=== PATIENT | male | born 1970 | race African-American/Black ===

== ENCOUNTER 2022-03-26 11:11 | Emergency (ER) | payer OTHER ==
[2022-03-26] MEDS ORDERED: DIPHTH,PERTUSS(ACELL),TET 0.5 ML DISP.SYRIN IM ONE ×2 (11:41→12:05)
[2022-03-26 11:49] VITALS: BP 106/70; PULSE 100; RESP 18; TEMP 98; BMI 20.3
== END 2022-03-26 12:25 | disposition home or self-care (01) ==
LOC: FER 11:11
PROC: 3E0234Z Introduction of Serum, Toxoid and Vaccine into Muscle, Percutaneous Approach (ICD-10-PCS; principal; 2022-03-26)
DX: S20.419A Abrasion of unspecified back wall of thorax, initial encounter (principal)
CPT/HCPCS: 90471; 90715; 99283-25

== ENCOUNTER 2022-07-27 10:22 | Inpatient (IN) | payer OTHER ==
[2022-07-27] MEDS ORDERED: ACETAMINOPHEN 1000 MG/100 ML BAG IVPB ONE (10:44)
[2022-07-27] MEDS ORDERED: SODIUM CHLORIDE 0.9% 500 ML INFUS.BAG IV ONE (10:44)
[2022-07-27] MEDS ORDERED: ACETAMINOPHEN INJECTION 100 ML IVPB ONE (11:31)
[2022-07-27 12:31] LABS: BASO % 0.4 % (0-2.0); HEMATOCRIT 41.9 % (35.4-49); HEMOGLOBIN 13.9 GM/dL (11.7-16.9); LYMPH % 7.2 % (8-40); MCH 28.4 pg (25.7-33.7); MCHC 33.1 g/dl (32.0-35.9); MEAN CELL VOLUME 85.7 fl (80-96); MEAN PLT VOLUME 8.4 fl (7.5-11.1); MONO % 11.1 % (3.8-10.2); NEUT % 81.3 % (42.8-82.8); PLATELET COUNT 151 10^3/uL (134-434); RBC 4.89 M/mm3 (4.00-5.60); RDW 13.6 % (11.9-15.9); WHITE BLOOD COUNT 9.5 K/mm3 (4.0-10.0)
[2022-07-27 12:33] LABS: VENOUS BASE EXCESS 0.7 mmol/L (-2-2); VENOUS O2 SATURATION 88.6 % (70-80); VENOUS PCO2 45.9 mmHg (38-52); VENOUS PH 7.378 (7.310-7.410)
[2022-07-27 12:41] LABS: INR 1.71 (0.83-1.09); PROTHROMBIN TIME (PATIENT) 19.8 SEC (9.7-13.0)
[2022-07-27 12:43] LABS: ACTIVATED PTT 34.2 SECONDS (25.2-36.5)
[2022-07-27 13:00] LABS: ALBUMIN 3.4 g/dl (3.4-5.0); BLOOD UREA NITROGEN 21.6 mg/dL (7-18); CALCIUM 8.5 mg/dL (8.5-10.1)
[2022-07-27 13:03] LABS: CREATININE 1.3 mg/dL (0.55-1.3)
[2022-07-27 13:05] LABS: BILIRUBIN,TOTAL 0.8 mg/dL (0.2-1); TOT PROT 6.4 g/dl (6.4-8.2)
[2022-07-27] MEDS ORDERED: ACETAMINOPHEN 325 MG TABLET (FP) PO PRN (14:05)
[2022-07-27] MEDS ORDERED: HEPARIN NA (PORCINE) 5,000 UNITS/ML 1ML VIAL ONE (14:41)
[2022-07-27] MEDS: HEPARIN NA (PORCINE) 5,000 UNITS/ML 1ML VIAL SQ SCH ×2 (14:50→22:55)
[2022-07-27] MEDS ORDERED: REMDESIVIR 200 MG in SODIUM CHLORIDE 250 ML IVPB ONE (15:00)
[2022-07-27] MEDS ORDERED: DEXAMETHASONE SOD PHOSPHATE 10 MG/1 ML VIAL IVPUSH ONE (15:04)
[2022-07-27] MEDS ORDERED: PATIENT'S OWN MEDICATION (NON-FORMULARY) (Clonazepam [Clonazepam] 1 MG Tablet) PO SCH (22:00)
[2022-07-27] MEDS: OXcarbazepine 300 MG TABLET (UD) PO SCH (22:54)
[2022-07-27] MEDS: clonazePAM 2 MG TABLET PO SCH (22:54)
[2022-07-27] MEDS: MAGNESIUM OXIDE 400 MG TABLET (FP) PO SCH (22:54)
[2022-07-27] MEDS: traZODone HCL 50 MG TABLET (FP) PO SCH (22:54)
[2022-07-28 02:14] VITALS: BMI 24.0
[2022-07-28] MEDS: HEPARIN NA (PORCINE) 5,000 UNITS/ML 1ML VIAL SQ SCH ×3 (06:41→21:32)
[2022-07-28] MEDS ORDERED: ACETAMINOPHEN 1000 MG/100 ML BAG IVPB ONE (09:32)
[2022-07-28] MEDS ORDERED: SODIUM CHLORIDE 1,000 ML IV SCH (09:45)
[2022-07-28] MEDS ORDERED: POLYETHYLENE GLYCOL 3350 255 GM BTL PO SCH (10:00)
[2022-07-28 10:06] LABS: BASO % 0.3 % (0-2.0); HEMATOCRIT 42.3 % (35.4-49); HEMOGLOBIN 14.2 GM/dL (11.7-16.9); LYMPH % 8.7 % (8-40); MCH 28.6 pg (25.7-33.7); MCHC 33.6 g/dl (32.0-35.9); MEAN CELL VOLUME 85.3 fl (80-96); MEAN PLT VOLUME 7.9 fl (7.5-11.1); MONO % 8.7 % (3.8-10.2); NEUT % 82.3 % (42.8-82.8); PLATELET COUNT 147 10^3/uL (134-434); RBC 4.96 M/mm3 (4.00-5.60); RDW 13.6 % (11.9-15.9); WHITE BLOOD COUNT 10.9 K/mm3 (4.0-10.0)
[2022-07-28 10:13] LABS: CALCIUM 8.5 mg/dL (8.5-10.1)
[2022-07-28 10:14] LABS: BLOOD UREA NITROGEN 12.3 mg/dL (7-18)
[2022-07-28 10:17] LABS: CREATININE 0.9 mg/dL (0.55-1.3)
[2022-07-28] MEDS ORDERED: CEFTRIAXONE 1,000 MG in DEXTROSE 5%-WATER - 50 ML IVPB ONE (10:36)
[2022-07-28] MEDS: OXcarbazepine 300 MG TABLET (UD) PO SCH ×2 (10:51→21:33)
[2022-07-28] MEDS: SENNOSIDES 8.6MG TABLET (FP) PO SCH (10:51)
[2022-07-28] MEDS: LACTULOSE 20 GM/30 ML UDC (FOR ORAL USE ONLY) PO SCH (10:52)
[2022-07-28] MEDS: BACLOFEN 10 MG TABLET (FP) PO SCH (10:52)
[2022-07-28] MEDS: PANTOPRAZOLE 40 MG TABLET PO SCH (10:52)
[2022-07-28] MEDS: POLYETHYLENE GLYCOL (HEALTHYLAX) 3350 17 GM PACKET PO SCH (12:01)
[2022-07-28] MEDS: PIPERACILLIN/TAZOB 3.375 GM 3.375 GM in DEXTROSE 5%-WATER - 50 ML IVPB SCH ×2 (12:01→18:27)
[2022-07-28] MEDS: ACETAMINOPHEN 325 MG TABLET (FP) PO PRN ×2 (12:08→17:25)
[2022-07-28] MEDS: REMDESIVIR 100 MG in SODIUM CHLORIDE 250 ML IVPB SCH (14:38)
[2022-07-28] MEDS: [UNRECOGNIZED DRUG - OTHER] PO SCH (14:43)
[2022-07-28] MEDS: FLUTICASONE PROP 0.05% 16 GM NASAL SPRAY NS SCH (15:03)
[2022-07-28] MEDS ORDERED: DOCUSATE SODIUM 100 MG CAPSULE (FP) PO PRN (16:43)
[2022-07-28] MEDS ORDERED: PATIENT'S OWN MEDICATION (NON-FORMULARY) (Ferrous Sulfate [Ferrous Sulfate] 325 MG Tablet) PO SCH (16:45)
[2022-07-28] MEDS ORDERED: [UNRECOGNIZED DRUG - OTHER] PO SCH (17:30)
[2022-07-28] MEDS ORDERED: FLUPHENAZINE HCL 10 MG PO SCH (20:00)
[2022-07-28] MEDS: traZODone HCL 50 MG TABLET (FP) PO SCH (21:32)
[2022-07-28] MEDS: MAGNESIUM OXIDE 400 MG TABLET (FP) PO SCH (21:32)
[2022-07-28] MEDS: clonazePAM 2 MG TABLET PO SCH (21:32)
[2022-07-28] MEDS: MINERAL OIL/PET HY-PHL TOPICAL OINTMENT 454 GM JAR TP SCH (21:34)
[2022-07-28] MEDS ORDERED: [UNRECOGNIZED DRUG - OTHER] PO SCH (22:00)
[2022-07-29] MEDS: PIPERACILLIN/TAZOB 3.375 GM 3.375 GM in DEXTROSE 5%-WATER - 50 ML IVPB SCH ×3 (01:26→17:18)
[2022-07-29] MEDS: HEPARIN NA (PORCINE) 5,000 UNITS/ML 1ML VIAL SQ SCH ×2 (05:14→23:00)
[2022-07-29 09:19] LABS: BASO % 0.4 % (0-2.0); EOS % 0.2 % (0-4.5); HEMATOCRIT 43.7 % (35.4-49); HEMOGLOBIN 14.1 GM/dL (11.7-16.9); LYMPH % 11.7 % (8-40); MCH 27.8 pg (25.7-33.7); MCHC 32.2 g/dl (32.0-35.9); MEAN CELL VOLUME 86.5 fl (80-96); MEAN PLT VOLUME 8.1 fl (7.5-11.1); MONO % 9.9 % (3.8-10.2); NEUT % 77.8 % (42.8-82.8); PLATELET COUNT 171 10^3/uL (134-434); RBC 5.05 M/mm3 (4.00-5.60); RDW 13.5 % (11.9-15.9); WHITE BLOOD COUNT 6.7 K/mm3 (4.0-10.0)
[2022-07-29 09:54] LABS: ALBUMIN 3.4 g/dl (3.4-5.0); CALCIUM 8.7 mg/dL (8.5-10.1)
[2022-07-29 09:55] LABS: BLOOD UREA NITROGEN 10.7 mg/dL (7-18); MAGNESIUM 2.3 mg/dL (1.8-2.4)
[2022-07-29 09:57] LABS: CREATININE 0.9 mg/dL (0.55-1.3)
[2022-07-29 09:58] LABS: PHOSPHOROUS 2.3 mg/dL (2.5-4.9)
[2022-07-29 09:59] LABS: BILIRUBIN,TOTAL 1.1 mg/dL (0.2-1); TOT PROT 6.6 g/dl (6.4-8.2)
[2022-07-29] MEDS: LACTULOSE 20 GM/30 ML UDC (FOR ORAL USE ONLY) PO SCH (10:12)
[2022-07-29] MEDS: POLYETHYLENE GLYCOL (HEALTHYLAX) 3350 17 GM PACKET PO SCH (10:12)
[2022-07-29] MEDS: SENNOSIDES 8.6MG TABLET (FP) PO SCH (10:12)
[2022-07-29] MEDS: BACLOFEN 10 MG TABLET (FP) PO SCH (10:37)
[2022-07-29] MEDS: CHOLECALCIFEROL (VIT D3) 1,000 UNIT (25 MCG) TABLET PO SCH (10:37)
[2022-07-29] MEDS: PANTOPRAZOLE 40 MG TABLET PO SCH (10:37)
[2022-07-29] MEDS: ACETAMINOPHEN 325 MG TABLET (FP) PO PRN (10:37)
[2022-07-29] MEDS: MINERAL OIL/PET HY-PHL TOPICAL OINTMENT 454 GM JAR TP SCH ×2 (10:38→23:00)
[2022-07-29] MEDS: OXcarbazepine 300 MG TABLET (UD) PO SCH ×2 (10:38→22:59)
[2022-07-29] MEDS: FLUTICASONE PROP 0.05% 16 GM NASAL SPRAY NS SCH (10:39)
[2022-07-29] MEDS: AMMONIUM LACTATE 12% LOTION 225 GM BOTTLE TP SCH (10:39)
[2022-07-29] MEDS ORDERED: NAPH,MB-DB/K PH,MBDB POWDER PACKET PO ONE (11:03)
[2022-07-29] MEDS: REMDESIVIR 100 MG in SODIUM CHLORIDE 250 ML IVPB SCH (15:19)
[2022-07-29] MEDS ORDERED: clonazePAM 2 MG TABLET PO ONE (16:00)
[2022-07-29] MEDS: CARIPRAZINE HCL 6 MG PO SCH (17:56)
[2022-07-29] MEDS: traZODone HCL 50 MG TABLET (FP) PO SCH (22:59)
[2022-07-29] MEDS: MAGNESIUM OXIDE 400 MG TABLET (FP) PO SCH (23:00)
[2022-07-30] MEDS: PIPERACILLIN/TAZOB 3.375 GM 3.375 GM in DEXTROSE 5%-WATER - 50 ML IVPB SCH ×3 (02:08→17:02)
[2022-07-30] MEDS ORDERED: clonazePAM 2 MG TABLET PO ONE (07:00)
[2022-07-30 10:16] LABS: BASO % 0.4 % (0-2.0); EOS % 0.7 % (0-4.5); HEMATOCRIT 43.6 % (35.4-49); HEMOGLOBIN 14.2 GM/dL (11.7-16.9); LYMPH % 25.1 % (8-40); MCH 27.9 pg (25.7-33.7); MCHC 32.5 g/dl (32.0-35.9); MEAN CELL VOLUME 85.7 fl (80-96); MEAN PLT VOLUME 7.9 fl (7.5-11.1); NEUT % 61.8 % (42.8-82.8); PLATELET COUNT 194 10^3/uL (134-434); RBC 5.08 M/mm3 (4.00-5.60); RDW 13.2 % (11.9-15.9); WHITE BLOOD COUNT 4.7 K/mm3 (4.0-10.0)
[2022-07-30] MEDS: MINERAL OIL/PET HY-PHL TOPICAL OINTMENT 454 GM JAR TP SCH ×2 (10:22→21:29)
[2022-07-30 10:26] LABS: CALCIUM 8.4 mg/dL (8.5-10.1)
[2022-07-30 10:27] LABS: ALBUMIN 3.2 g/dl (3.4-5.0); BLOOD UREA NITROGEN 11.1 mg/dL (7-18); MAGNESIUM 2.5 mg/dL (1.8-2.4)
[2022-07-30 10:30] LABS: CREATININE 0.9 mg/dL (0.55-1.3); PHOSPHOROUS 2.8 mg/dL (2.5-4.9)
[2022-07-30 10:31] LABS: BILIRUBIN,TOTAL 1.4 mg/dL (0.2-1); TOT PROT 6.6 g/dl (6.4-8.2)
[2022-07-30] MEDS: OXcarbazepine 300 MG TABLET (UD) PO SCH ×2 (10:31→21:33)
[2022-07-30] MEDS: HEPARIN NA (PORCINE) 5,000 UNITS/ML 1ML VIAL SQ SCH ×2 (10:32→21:29)
[2022-07-30] MEDS: POLYETHYLENE GLYCOL (HEALTHYLAX) 3350 17 GM PACKET PO SCH (10:32)
[2022-07-30] MEDS: SENNOSIDES 8.6MG TABLET (FP) PO SCH (10:35)
[2022-07-30] MEDS: PANTOPRAZOLE 40 MG TABLET PO SCH (10:36)
[2022-07-30] MEDS: LACTULOSE 20 GM/30 ML UDC (FOR ORAL USE ONLY) PO SCH (10:36)
[2022-07-30] MEDS: CHOLECALCIFEROL (VIT D3) 1,000 UNIT (25 MCG) TABLET PO SCH (10:36)
[2022-07-30] MEDS: FERROUS SO4 325 MG TABLET (FP) PO SCH (10:36)
[2022-07-30] MEDS: BACLOFEN 10 MG TABLET (FP) PO SCH (10:36)
[2022-07-30] MEDS: AMMONIUM LACTATE 12% LOTION 225 GM BOTTLE TP SCH (10:38)
[2022-07-30] MEDS: CARIPRAZINE HCL 6 MG PO SCH (10:41)
[2022-07-30] MEDS: FLUTICASONE PROP 0.05% 16 GM NASAL SPRAY NS SCH (10:47)
[2022-07-30] MEDS: REMDESIVIR 100 MG in SODIUM CHLORIDE 250 ML IVPB SCH (16:17)
[2022-07-30] MEDS: clonazePAM 0.5 MG TABLET PO SCH ×2 (16:21→21:28)
[2022-07-30] MEDS: traZODone HCL 50 MG TABLET (FP) PO SCH (21:29)
[2022-07-30] MEDS: MAGNESIUM OXIDE 400 MG TABLET (FP) PO SCH (21:29)
[2022-07-31] MEDS: clonazePAM 2 MG TABLET PO SCH ×2 (06:12→11:04)
[2022-07-31] MEDS: CARIPRAZINE HCL 6 MG PO SCH (11:03)
[2022-07-31] MEDS: LACTULOSE 20 GM/30 ML UDC (FOR ORAL USE ONLY) PO SCH (11:03)
[2022-07-31] MEDS: DEXAMETHASONE 4 MG TABLET (FP) PO SCH (11:03)
[2022-07-31] MEDS: MINERAL OIL/PET HY-PHL TOPICAL OINTMENT 454 GM JAR TP SCH ×2 (11:03→22:47)
[2022-07-31] MEDS: FLUTICASONE PROP 0.05% 16 GM NASAL SPRAY NS SCH (11:04)
[2022-07-31] MEDS: POLYETHYLENE GLYCOL (HEALTHYLAX) 3350 17 GM PACKET PO SCH (11:04)
[2022-07-31] MEDS: HEPARIN NA (PORCINE) 5,000 UNITS/ML 1ML VIAL SQ SCH ×2 (11:04→22:46)
[2022-07-31] MEDS: AMMONIUM LACTATE 12% LOTION 225 GM BOTTLE TP SCH (11:05)
[2022-07-31] MEDS: PANTOPRAZOLE 40 MG TABLET PO SCH (11:05)
[2022-07-31] MEDS: SENNOSIDES 8.6MG TABLET (FP) PO SCH (11:05)
[2022-07-31] MEDS: BACLOFEN 10 MG TABLET (FP) PO SCH (11:05)
[2022-07-31] MEDS: CEFTRIAXONE 1 GM in DEXTROSE 5%-WATER - 50 ML IVPB SCH (11:05)
[2022-07-31] MEDS: CHOLECALCIFEROL (VIT D3) 1,000 UNIT (25 MCG) TABLET PO SCH (11:06)
[2022-07-31] MEDS: OXcarbazepine 300 MG TABLET (UD) PO SCH ×2 (11:06→22:47)
[2022-07-31 11:18] LABS: BASO % 0.6 % (0-2.0); EOS % 0.3 % (0-4.5); HEMATOCRIT 43.7 % (35.4-49); HEMOGLOBIN 14.1 GM/dL (11.7-16.9); LYMPH % 21.3 % (8-40); MCH 27.8 pg (25.7-33.7); MCHC 32.4 g/dl (32.0-35.9); MEAN CELL VOLUME 85.8 fl (80-96); MEAN PLT VOLUME 7.5 fl (7.5-11.1); MONO % 10.8 % (3.8-10.2); PLATELET COUNT 221 10^3/uL (134-434); RBC 5.09 M/mm3 (4.00-5.60); RDW 13.1 % (11.9-15.9); WHITE BLOOD COUNT 4.4 K/mm3 (4.0-10.0)
[2022-07-31 11:36] LABS: ALBUMIN 3.3 g/dl (3.4-5.0); CALCIUM 8.9 mg/dL (8.5-10.1)
[2022-07-31 11:37] LABS: BLOOD UREA NITROGEN 8.7 mg/dL (7-18); MAGNESIUM 2.4 mg/dL (1.8-2.4)
[2022-07-31 11:39] LABS: CREATININE 0.8 mg/dL (0.55-1.3); PHOSPHOROUS 2.8 mg/dL (2.5-4.9)
[2022-07-31 11:41] LABS: TOT PROT 6.6 g/dl (6.4-8.2)
[2022-07-31] MEDS: REMDESIVIR 100 MG in SODIUM CHLORIDE 250 ML IVPB SCH (14:38)
[2022-07-31] MEDS: clonazePAM 0.5 MG TABLET PO SCH ×2 (17:09→22:45)
[2022-07-31] MEDS: MAGNESIUM OXIDE 400 MG TABLET (FP) PO SCH (22:45)
[2022-07-31] MEDS: traZODone HCL 50 MG TABLET (FP) PO SCH (22:45)
[2022-08-01] MEDS: LACTULOSE 20 GM/30 ML UDC (FOR ORAL USE ONLY) PO SCH (09:54)
[2022-08-01] MEDS: CHOLECALCIFEROL (VIT D3) 1,000 UNIT (25 MCG) TABLET PO SCH (09:55)
[2022-08-01] MEDS: DEXAMETHASONE 4 MG TABLET (FP) PO SCH (09:55)
[2022-08-01] MEDS: FERROUS SO4 325 MG TABLET (FP) PO SCH (09:55)
[2022-08-01] MEDS: BACLOFEN 10 MG TABLET (FP) PO SCH (09:55)
[2022-08-01] MEDS: clonazePAM 2 MG TABLET PO SCH (09:55)
[2022-08-01] MEDS: SENNOSIDES 8.6MG TABLET (FP) PO SCH (09:55)
[2022-08-01] MEDS: HEPARIN NA (PORCINE) 5,000 UNITS/ML 1ML VIAL SQ SCH (09:56)
[2022-08-01] MEDS: MINERAL OIL/PET HY-PHL TOPICAL OINTMENT 454 GM JAR TP SCH (09:56)
[2022-08-01] MEDS: POLYETHYLENE GLYCOL (HEALTHYLAX) 3350 17 GM PACKET PO SCH (09:56)
[2022-08-01] MEDS: AMMONIUM LACTATE 12% LOTION 225 GM BOTTLE TP SCH (09:57)
[2022-08-01] MEDS: FLUTICASONE PROP 0.05% 16 GM NASAL SPRAY NS SCH (09:57)
[2022-08-01] MEDS: OXcarbazepine 300 MG TABLET (UD) PO SCH (09:59)
[2022-08-01] MEDS: CARIPRAZINE HCL 6 MG PO SCH (10:01)
[2022-08-01] MEDS: PANTOPRAZOLE 40 MG TABLET PO SCH (10:02)
[2022-08-01] MEDS: CEFTRIAXONE 1 GM in DEXTROSE 5%-WATER - 50 ML IVPB SCH (10:03)
[2022-08-01 11:01] VITALS: RESP 18
[2022-08-01 11:50] LABS: BASO % 0.5 % (0-2.0); EOS % 0.5 % (0-4.5); HEMATOCRIT 44.4 % (35.4-49); HEMOGLOBIN 14.4 GM/dL (11.7-16.9); LYMPH % 28.5 % (8-40); MCHC 32.5 g/dl (32.0-35.9); MEAN PLT VOLUME 7.9 fl (7.5-11.1); MONO % 10.8 % (3.8-10.2); NEUT % 59.7 % (42.8-82.8); PLATELET COUNT 210 10^3/uL (134-434); RBC 5.16 M/mm3 (4.00-5.60); RDW 13.1 % (11.9-15.9); WHITE BLOOD COUNT 6.5 K/mm3 (4.0-10.0)
[2022-08-01 12:29] LABS: ALBUMIN 3.2 g/dl (3.4-5.0); CALCIUM 8.9 mg/dL (8.5-10.1)
[2022-08-01 12:30] LABS: BLOOD UREA NITROGEN 8.5 mg/dL (7-18); MAGNESIUM 2.3 mg/dL (1.8-2.4)
[2022-08-01 12:32] LABS: CREATININE 0.8 mg/dL (0.55-1.3)
[2022-08-01 12:33] LABS: BILIRUBIN,TOTAL 0.7 mg/dL (0.2-1); TOT PROT 6.5 g/dl (6.4-8.2)
[2022-08-01 15:12] VITALS: BP 118/76; PULSE 93; TEMP 98.7
== END 2022-08-01 16:39 | disposition home or self-care (01) | DRG 177 ==
LOC: JER 10:22 → JERBED 14:30 → J8W 18:23
PROVIDERS: ADMIT Internal Medicine; ATTEND Internal Medicine
PROC: XW033E5 Introduction of Remdesivir Anti-infective into Peripheral Vein, Percutaneous Approach, New Technology Group 5 (ICD-10-PCS; principal; 2022-07-27)
DX: U07.1 COVID-19 (principal); J12.82 Pneumonia due to coronavirus disease 2019; K56.7 Ileus, unspecified; R78.81 Bacteremia; F72 Severe intellectual disabilities; N17.9 Acute kidney failure, unspecified; F20.9 Schizophrenia, unspecified; R09.02 Hypoxemia
CPT/HCPCS: 0241U-QW; 36415; 71045-TC-FY; 74018-TC-FY; 80048; 80053; 82803; 82962; 83605; 83735; 84100; 84484; 85025; 85610; 85730; 86140; 87040; 87186; 87899; 93005; 93010; 97116-GP; 97161-GP; 99285-25; C9399; C9803-CS; J0475; J1100; J1644; U0003; U0005

== ENCOUNTER 2022-12-01 14:36 | Inpatient (IN) | payer OTHER ==
[2022-12-01] MEDS ORDERED: SODIUM CHLORIDE 0.9% 1000 ML INFUS.BAG IV ONE (15:31)
[2022-12-01] MEDS ORDERED: ACETAMINOPHEN 1000 MG/100 ML BAG IVPB ONE (15:31)
[2022-12-01] MEDS ORDERED: ALBUTEROL SO4 2.5/IPRATROPIUM 0.5 INH SOL 3 ML VIAL.NEB. NEB ONE ×2 (15:31→15:35)
[2022-12-01] MEDS ORDERED: ACETAMINOPHEN INJECTION 100 ML IVPB ONE (15:35)
[2022-12-01] MEDS ORDERED: guaiFENesin/CODEINE 10 ML UNIT-DOSE CUPS PO ONE (17:24)
[2022-12-01 17:25] LABS: ALBUMIN 3.9 g/dl (3.4-5.0); BILIRUBIN,TOTAL 0.6 mg/dl (0.2-1); CALCIUM 8.4 mg/dl (8.5-10); TOT PROT 6.6 g/dl (6.4-8.2)
[2022-12-01] MEDS ORDERED: guaiFENesin/CODEINE 10 ML UNIT-DOSE CUPS ONE (17:43)
[2022-12-01 17:51] LABS: HEMATOCRIT 45.5 % (35.4-49); HEMOGLOBIN 15.3 GM/dL (11.7-16.9); MCH 28.4 pg (25.7-33.7); MCHC 33.6 g/dl (32.0-35.9); MEAN CELL VOLUME 84.6 fl (80-96); MEAN PLT VOLUME 8.8 fl (7.5-11.1); PLATELET COUNT 201 10^3/uL (134-434); RBC 5.38 M/mm3 (4.00-5.60); WHITE BLOOD COUNT 8.2 K/mm3 (4.0-10.0)
[2022-12-01] MEDS ORDERED: AZITHROMYCIN 250 MG TABLET PO ONE (18:51)
[2022-12-01] MEDS ORDERED: AZITHROMYCIN 500 MG TABLET ONE (18:56)
[2022-12-01] MEDS ORDERED: PIPERACILLIN/TAZOBACTAM 3.375 GM VIAL IVPB ONE (19:32)
[2022-12-01] MEDS: PIPERACILLIN/TAZOB 3.375 GM 3.375 GM in DEXTROSE 5%-WATER - 50 ML IVPB ONE (19:45)
[2022-12-02] MEDS: PIPERACILLIN/TAZOB 3.375 GM 3.375 GM in DEXTROSE 5%-WATER - 50 ML IVPB SCH ×5 (01:03→18:24)
[2022-12-02] MEDS: clonazePAM 2 MG TABLET PO SCH (07:01)
[2022-12-02 08:20] LABS: ALBUMIN 3.5 g/dl (3.4-5.0); BILIRUBIN,TOTAL 0.7 mg/dl (0.2-1); CALCIUM 8.5 mg/dl (8.5-10); CREATININE 1.2 mg/dl (0.55-1.3); TOT PROT 6.1 g/dl (6.4-8.2)
[2022-12-02 09:59] LABS: HEMOGLOBIN 13.6 GM/dL (11.7-16.9)
[2022-12-02 10:14] LABS: BASO % 0.6 % (0-2.0); EOS % 0.1 % (0-4.5); HEMATOCRIT 40.5 % (35.4-49); LYMPH % 3.9 % (8-40); MCH 28.4 pg (25.7-33.7); MCHC 33.7 g/dl (32.0-35.9); MEAN CELL VOLUME 84.2 fl (80-96); MEAN PLT VOLUME 8.2 fl (7.5-11.1); MONO % 15.5 % (3.8-10.2); NEUT % 79.9 % (42.8-82.8); PLATELET COUNT 161 10^3/uL (134-434); RBC 4.81 M/mm3 (4.00-5.60); RDW 13.5 % (11.9-15.9); WHITE BLOOD COUNT 7.6 K/mm3 (4.0-10.0)
[2022-12-02] MEDS ORDERED: PIPERACILLIN/TAZOB 3.375 GM 3.375 GM in DEXTROSE 5%-WATER - 50 ML IVPB SCH ×2 (10:45→11:00)
[2022-12-02] MEDS: ACETAMINOPHEN 1000 MG/100 ML BAG IVPB PRN (11:03)
[2022-12-02] MEDS: SODIUM CHLORIDE 1,000 ML IV SCH (16:44)
[2022-12-02] MEDS: LORATADINE 10 MG TABLET PO SCH (19:56)
[2022-12-02] MEDS: DOCUSATE SODIUM 100 MG CAPSULE (FP) PO SCH ×2 (19:56→21:29)
[2022-12-02] MEDS: BACLOFEN 10 MG TABLET (FP) PO SCH (19:57)
[2022-12-02] MEDS: FERROUS SO4 325 MG TABLET (FP) PO SCH (19:57)
[2022-12-02] MEDS: MAGNESIUM OXIDE 400 MG TABLET (FP) PO SCH (19:57)
[2022-12-02] MEDS: CALCIUM 500MG/VIT-D 200 UNITS COMBO TABLET (FP) PO SCH (19:57)
[2022-12-02] MEDS: FLUTICASONE PROP 0.05% 16 GM NASAL SPRAY NS SCH (19:57)
[2022-12-02] MEDS: POLYETHYLENE GLYCOL (HEALTHYLAX) 3350 17 GM PACKET PO SCH (19:57)
[2022-12-02] MEDS: OXcarbazepine 300 MG TABLET (UD) PO SCH ×2 (19:58→21:32)
[2022-12-02] MEDS: clonazePAM 0.5 MG TABLET PO SCH ×2 (19:58→20:34)
[2022-12-02] MEDS: PANTOPRAZOLE 40 MG TABLET PO SCH (19:58)
[2022-12-02] MEDS: SENNOSIDES 8.6MG TABLET (FP) PO SCH (19:58)
[2022-12-02] MEDS: CHOLECALCIFEROL (VIT D3) 1,000 UNIT (25 MCG) TABLET PO SCH (19:58)
[2022-12-02] MEDS: PIPERACILLIN/TAZOB 3.375 GM 3.375 GM in DEXTROSE 5%-WATER - 50 ML IVPB ONE (20:23)
[2022-12-02] MEDS ORDERED: FLUPHENAZINE HCL 10 MG PO SCH (21:00)
[2022-12-02] MEDS: traZODone HCL 50 MG TABLET (FP) PO SCH (21:29)
[2022-12-03] MEDS: PIPERACILLIN/TAZOB 3.375 GM 3.375 GM in DEXTROSE 5%-WATER - 50 ML IVPB SCH ×4 (02:00→18:29)
[2022-12-03] MEDS: clonazePAM 2 MG TABLET PO SCH (06:27)
[2022-12-03] MEDS: ACETAMINOPHEN 1000 MG/100 ML BAG IVPB PRN (06:28)
[2022-12-03 08:38] LABS: ALBUMIN 3.4 g/dl (3.4-5.0); BILIRUBIN,TOTAL 0.7 mg/dl (0.2-1); CREATININE 1.1 mg/dl (0.55-1.3); TOT PROT 6.2 g/dl (6.4-8.2)
[2022-12-03] MEDS: LORATADINE 10 MG TABLET PO SCH (10:19)
[2022-12-03] MEDS: FLUTICASONE PROP 0.05% 16 GM NASAL SPRAY NS SCH (10:20)
[2022-12-03] MEDS: POLYETHYLENE GLYCOL (HEALTHYLAX) 3350 17 GM PACKET PO SCH (10:20)
[2022-12-03] MEDS: DOCUSATE SODIUM 100 MG CAPSULE (FP) PO SCH ×2 (10:20→21:33)
[2022-12-03] MEDS: SENNOSIDES 8.6MG TABLET (FP) PO SCH (10:21)
[2022-12-03] MEDS: CALCIUM 500MG/VIT-D 200 UNITS COMBO TABLET (FP) PO SCH (10:21)
[2022-12-03] MEDS: MAGNESIUM OXIDE 400 MG TABLET (FP) PO SCH (10:21)
[2022-12-03] MEDS: BACLOFEN 10 MG TABLET (FP) PO SCH (10:21)
[2022-12-03] MEDS: PANTOPRAZOLE 40 MG TABLET PO SCH (10:21)
[2022-12-03] MEDS: OXcarbazepine 300 MG TABLET (UD) PO SCH ×2 (10:22→21:34)
[2022-12-03] MEDS: CHOLECALCIFEROL (VIT D3) 1,000 UNIT (25 MCG) TABLET PO SCH (10:22)
[2022-12-03] MEDS: ENOXAPARIN NA (PORCINE) 40 MG/0.4 ML DISP.SYRIN SQ SCH (11:30)
[2022-12-03] MEDS: clonazePAM 0.5 MG TABLET PO SCH ×2 (15:05→20:56)
[2022-12-03] MEDS: SODIUM CHLORIDE 1,000 ML IV SCH (18:28)
[2022-12-03] MEDS: traZODone HCL 50 MG TABLET (FP) PO SCH (21:33)
[2022-12-04] MEDS: PIPERACILLIN/TAZOB 3.375 GM 3.375 GM in DEXTROSE 5%-WATER - 50 ML IVPB SCH ×3 (03:12→18:01)
[2022-12-04] MEDS: clonazePAM 2 MG TABLET PO SCH (06:26)
[2022-12-04] MEDS: ENOXAPARIN NA (PORCINE) 40 MG/0.4 ML DISP.SYRIN SQ SCH (10:40)
[2022-12-04] MEDS: CALCIUM 500MG/VIT-D 200 UNITS COMBO TABLET (FP) PO SCH (10:41)
[2022-12-04] MEDS: DOCUSATE SODIUM 100 MG CAPSULE (FP) PO SCH ×2 (10:41→21:11)
[2022-12-04] MEDS: CHOLECALCIFEROL (VIT D3) 1,000 UNIT (25 MCG) TABLET PO SCH (10:41)
[2022-12-04] MEDS: BACLOFEN 10 MG TABLET (FP) PO SCH (10:41)
[2022-12-04] MEDS: FLUTICASONE PROP 0.05% 16 GM NASAL SPRAY NS SCH (10:41)
[2022-12-04] MEDS: FERROUS SO4 325 MG TABLET (FP) PO SCH (10:41)
[2022-12-04] MEDS: MAGNESIUM OXIDE 400 MG TABLET (FP) PO SCH (10:41)
[2022-12-04] MEDS: PANTOPRAZOLE 40 MG TABLET PO SCH (10:41)
[2022-12-04] MEDS: LORATADINE 10 MG TABLET PO SCH (10:41)
[2022-12-04] MEDS: POLYETHYLENE GLYCOL (HEALTHYLAX) 3350 17 GM PACKET PO SCH (10:41)
[2022-12-04] MEDS: SENNOSIDES 8.6MG TABLET (FP) PO SCH (10:41)
[2022-12-04] MEDS: OXcarbazepine 300 MG TABLET (UD) PO SCH ×2 (10:42→21:13)
[2022-12-04] MEDS: clonazePAM 0.5 MG TABLET PO SCH ×2 (15:24→20:10)
[2022-12-04] MEDS: traZODone HCL 50 MG TABLET (FP) PO SCH (21:12)
[2022-12-05] MEDS: PIPERACILLIN/TAZOB 3.375 GM 3.375 GM in DEXTROSE 5%-WATER - 50 ML IVPB SCH ×3 (01:32→17:09)
[2022-12-05] MEDS: clonazePAM 2 MG TABLET PO SCH (06:26)
[2022-12-05 09:28] LABS: ALBUMIN 3.9 g/dl (3.4-5.0); BILIRUBIN,TOTAL 0.9 mg/dl (0.2-1); CALCIUM 9.1 mg/dl (8.5-10); CREATININE 0.7 mg/dl (0.55-1.3); TOT PROT 6.6 g/dl (6.4-8.2)
[2022-12-05 10:17] LABS: BASO % 0.4 % (0-2.0); EOS % 0.8 % (0-4.5); HEMATOCRIT 41.3 % (35.4-49); HEMOGLOBIN 13.9 GM/dL (11.7-16.9); LYMPH % 24.9 % (8-40); MCH 28.2 pg (25.7-33.7); MCHC 33.6 g/dl (32.0-35.9); MEAN CELL VOLUME 83.9 fl (80-96); MEAN PLT VOLUME 8.3 fl (7.5-11.1); MONO % 14.1 % (3.8-10.2); NEUT % 59.8 % (42.8-82.8); PLATELET COUNT 149 10^3/uL (134-434); RBC 4.92 M/mm3 (4.00-5.60); RDW 13.2 % (11.9-15.9); WHITE BLOOD COUNT 3.8 K/mm3 (4.0-10.0)
[2022-12-05] MEDS: ENOXAPARIN NA (PORCINE) 40 MG/0.4 ML DISP.SYRIN SQ SCH (10:21)
[2022-12-05] MEDS: MAGNESIUM OXIDE 400 MG TABLET (FP) PO SCH (10:22)
[2022-12-05] MEDS: LORATADINE 10 MG TABLET PO SCH (10:22)
[2022-12-05] MEDS: CARIPRAZINE HCL 6 MG PO SCH (10:22)
[2022-12-05] MEDS: CALCIUM 500MG/VIT-D 200 UNITS COMBO TABLET (FP) PO SCH (10:22)
[2022-12-05] MEDS: SENNOSIDES 8.6MG TABLET (FP) PO SCH (10:22)
[2022-12-05] MEDS: DOCUSATE SODIUM 100 MG CAPSULE (FP) PO SCH ×2 (10:22→21:30)
[2022-12-05] MEDS: POLYETHYLENE GLYCOL (HEALTHYLAX) 3350 17 GM PACKET PO SCH (10:22)
[2022-12-05] MEDS: PANTOPRAZOLE 40 MG TABLET PO SCH (10:22)
[2022-12-05] MEDS: CHOLECALCIFEROL (VIT D3) 1,000 UNIT (25 MCG) TABLET PO SCH (10:22)
[2022-12-05] MEDS: FLUTICASONE PROP 0.05% 16 GM NASAL SPRAY NS SCH (10:22)
[2022-12-05] MEDS: BACLOFEN 10 MG TABLET (FP) PO SCH (10:24)
[2022-12-05] MEDS: OXcarbazepine 300 MG TABLET (UD) PO SCH ×2 (10:26→22:55)
[2022-12-05] MEDS: clonazePAM 0.5 MG TABLET PO SCH ×2 (16:20→21:31)
[2022-12-05] MEDS: traZODone HCL 50 MG TABLET (FP) PO SCH (21:30)
[2022-12-06 00:29] VITALS: BMI 23.8
[2022-12-06] MEDS: PIPERACILLIN/TAZOB 3.375 GM 3.375 GM in DEXTROSE 5%-WATER - 50 ML IVPB SCH ×3 (01:38→17:30)
[2022-12-06] MEDS: clonazePAM 2 MG TABLET PO SCH (06:30)
[2022-12-06] MEDS: CARIPRAZINE HCL 6 MG PO SCH (09:49)
[2022-12-06] MEDS: FLUTICASONE PROP 0.05% 16 GM NASAL SPRAY NS SCH (09:50)
[2022-12-06] MEDS: DOCUSATE SODIUM 100 MG CAPSULE (FP) PO SCH ×3 (09:50→21:06)
[2022-12-06] MEDS: OXcarbazepine 300 MG TABLET (UD) PO SCH ×2 (09:51→21:10)
[2022-12-06] MEDS: BACLOFEN 10 MG TABLET (FP) PO SCH (09:52)
[2022-12-06] MEDS: CALCIUM 500MG/VIT-D 200 UNITS COMBO TABLET (FP) PO SCH (09:52)
[2022-12-06] MEDS: PANTOPRAZOLE 40 MG TABLET PO SCH (09:53)
[2022-12-06] MEDS: MAGNESIUM OXIDE 400 MG TABLET (FP) PO SCH (09:53)
[2022-12-06] MEDS: FERROUS SO4 325 MG TABLET (FP) PO SCH (09:53)
[2022-12-06] MEDS: SENNOSIDES 8.6MG TABLET (FP) PO SCH (09:53)
[2022-12-06] MEDS: ENOXAPARIN NA (PORCINE) 40 MG/0.4 ML DISP.SYRIN SQ SCH (09:53)
[2022-12-06] MEDS: CHOLECALCIFEROL (VIT D3) 1,000 UNIT (25 MCG) TABLET PO SCH (09:53)
[2022-12-06] MEDS: POLYETHYLENE GLYCOL (HEALTHYLAX) 3350 17 GM PACKET PO SCH ×2 (09:53→10:42)
[2022-12-06] MEDS: LORATADINE 10 MG TABLET PO SCH (09:53)
[2022-12-06] MEDS: clonazePAM 0.5 MG TABLET PO SCH ×2 (17:30→21:06)
[2022-12-06] MEDS: traZODone HCL 50 MG TABLET (FP) PO SCH (21:06)
[2022-12-07] MEDS: PIPERACILLIN/TAZOB 3.375 GM 3.375 GM in DEXTROSE 5%-WATER - 50 ML IVPB SCH ×2 (02:11→09:27)
[2022-12-07] MEDS: clonazePAM 2 MG TABLET PO SCH (06:09)
[2022-12-07] MEDS: OXcarbazepine 300 MG TABLET (UD) PO SCH (09:24)
[2022-12-07] MEDS: CARIPRAZINE HCL 6 MG PO SCH (09:24)
[2022-12-07] MEDS: BACLOFEN 10 MG TABLET (FP) PO SCH (09:25)
[2022-12-07] MEDS: DOCUSATE SODIUM 100 MG CAPSULE (FP) PO SCH (09:25)
[2022-12-07] MEDS: CALCIUM 500MG/VIT-D 200 UNITS COMBO TABLET (FP) PO SCH (09:25)
[2022-12-07] MEDS: PANTOPRAZOLE 40 MG TABLET PO SCH (09:25)
[2022-12-07] MEDS: CHOLECALCIFEROL (VIT D3) 1,000 UNIT (25 MCG) TABLET PO SCH (09:26)
[2022-12-07] MEDS: LORATADINE 10 MG TABLET PO SCH (09:27)
[2022-12-07] MEDS: FLUTICASONE PROP 0.05% 16 GM NASAL SPRAY NS SCH (09:27)
[2022-12-07] MEDS: MAGNESIUM OXIDE 400 MG TABLET (FP) PO SCH (09:27)
[2022-12-07] MEDS: ENOXAPARIN NA (PORCINE) 40 MG/0.4 ML DISP.SYRIN SQ SCH (09:28)
[2022-12-07] MEDS ORDERED: AMOX TR/POT CLAV 500MG/125MG TABLETS (FP) PO ONE (10:33)
[2022-12-07 14:03] VITALS: BP 124/65; PULSE 95; RESP 18; TEMP 97.6
== END 2022-12-07 14:10 | disposition home or self-care (01) | DRG 178 ==
LOC: FER 14:36 → FM/S 19:53
PROVIDERS: ADMIT Internal Medicine; ATTEND Internal Medicine
DX: J69.0 Pneumonitis due to inhalation of food and vomit (principal); E87.1 Hypo-osmolality and hyponatremia; F72 Severe intellectual disabilities; R78.81 Bacteremia; K59.00 Constipation, unspecified; F20.9 Schizophrenia, unspecified; K21.9 Gastro-esophageal reflux disease without esophagitis; G40.909 Epilepsy, unspecified, not intractable, without status epilepticus; I10 Essential (primary) hypertension; E78.5 Hyperlipidemia, unspecified; F39 Unspecified mood [affective] disorder; J06.9 Acute upper respiratory infection, unspecified
CPT/HCPCS: 0241U-QW; 36415; 71046-TC-FY; 74176-TC; 80053; 81003; 81015; 82436; 84133; 84300; 85025; 85027; 87040; 87077; 87086; 87899; 99285-25; J0475

== ENCOUNTER 2023-11-10 16:41 | Inpatient (IN) | payer OTHER ==
[2023-11-10 17:38] LABS: HEMATOCRIT 44.5 % (35.4-49); HEMOGLOBIN 14.9 G/dL (11.7-16.9); MCH 29.4 pg (25.7-33.7); MCHC 33.5 g/dl (32.0-35.9); MEAN CELL VOLUME 87.5 fl (80-96); PLATELET COUNT 149.9 10^3/uL (134-434); RBC 5.08 10^6/uL (4.00-5.60); RDW 14.6 % (11.9-15.9); WHITE BLOOD COUNT 15.7 10^3/uL (4.0-10.8)
[2023-11-10 18:04] LABS: ALBUMIN 4.1 g/dl (3.4-5.0); BILIRUBIN,TOTAL 0.8 mg/dl (0.2-1); CALCIUM 8.8 mg/dl (8.5-10.1); CREATININE 1.2 mg/dl (0.6-1.3); POTASSIUM 3.4 mmol/L (3.5-5.1); TOT PROT 6.4 g/dl (6.4-8.2)
[2023-11-10 18:10] LABS: PLATELET ESTIMATE ADEQUATE
[2023-11-10] MEDS ORDERED: AMPICILLIN NA/SULBACTAM NA 3 GM VIAL ONE (19:29)
[2023-11-10] MEDS: AMPICILLIN NA/SULBACTAM NA 3 GM in DEXTROSE 5%-WATER 100 ML IVPB ONE (19:35)
[2023-11-10] MEDS ORDERED: POTASSIUM CHLORIDE TABS 20 MEQ TABLET.ER (FP) PO ONE (19:55)
[2023-11-10] MEDS: POTASSIUM CHLORIDE TABS 20 MEQ TABLET.ER (FP) PO ONE (19:58)
[2023-11-10 22:05] VITALS: BMI 23.3
[2023-11-11] MEDS: AMPICILLIN NA/SULBACTAM NA 3 GM in DEXTROSE 5%-WATER 100 ML IVPB SCH (02:49)
[2023-11-11] MEDS: PANTOPRAZOLE 40 MG TABLET PO SCH (06:34)
[2023-11-11] MEDS: BACLOFEN 10 MG TABLET (FP) PO SCH (06:34)
[2023-11-11] MEDS: DOCUSATE SODIUM 100 MG CAPSULE (FP) PO SCH (06:34)
[2023-11-11] MEDS: clonazePAM 2 MG TABLET PO SCH (06:34)
[2023-11-11 08:36] LABS: HEMATOCRIT 47.2 % (35.4-49); HEMOGLOBIN 15.5 G/dL (11.7-16.9); MCH 29.1 pg (25.7-33.7); MCHC 32.9 g/dl (32.0-35.9); MEAN CELL VOLUME 88.5 fl (80-96); MEAN PLT VOLUME 8.4 fl (7.5-11.1); PLATELET COUNT 169.7 10^3/uL (134-434); RBC 5.33 10^6/uL (4.00-5.60); RDW 14.4 % (11.9-15.9); WHITE BLOOD COUNT 14.7 10^3/uL (4.0-10.8)
[2023-11-11 09:25] LABS: CALCIUM 9.1 mg/dl (8.5-10.1)
[2023-11-11] MEDS: MAGNESIUM OXIDE 400 MG TABLET (FP) PO SCH (10:47)
[2023-11-11] MEDS: CALCIUM 500MG/VIT-D 200 UNITS COMBO TABLET (FP) PO SCH (10:47)
[2023-11-11] MEDS: CHOLECALCIFEROL (VIT D3) 1,000 UNIT (25 MCG) TABLET PO SCH (10:47)
[2023-11-11] MEDS: ENOXAPARIN NA (PORCINE) 40 MG/0.4 ML DISP.SYRIN SQ SCH (10:47)
[2023-11-11] MEDS: LORATADINE 10 MG TABLET PO SCH (10:47)
[2023-11-11] MEDS: POLYETHYLENE GLYCOL (HEALTHYLAX) 3350 17 GM PACKET PO SCH (10:48)
[2023-11-11] MEDS: OXcarbazepine 300 MG TABLET (UD) PO SCH (10:51)
[2023-11-11] MEDS: AMMONIUM LACTATE 12% LOTION 225 GM BOTTLE TP SCH (11:45)
[2023-11-11] MEDS: FLUTICASONE PROP 0.05% 16 GM NASAL SPRAY NS SCH (11:46)
[2023-11-11] MEDS ORDERED: ACETAMINOPHEN 325 MG TABLET (FP) PO PRN (11:47)
[2023-11-11] MEDS: MINERAL OIL/PET HY-PHL TOPICAL OINTMENT 454 GM JAR TP SCH (12:19)
[2023-11-11] MEDS: clonazePAM 0.5 MG TABLET PO SCH ×2 (15:43→21:11)
[2023-11-11] MEDS: traZODone HCL 50 MG TABLET (FP) PO SCH (21:11)
[2023-11-11] MEDS: SENNOSIDES 8.6MG TABLET (FP) PO SCH (21:12)
[2023-11-12] MEDS: guaiFENesin 200 MG/10 ML 10 ML UNIT-DOSE CUPS PO PRN (06:07)
[2023-11-12] MEDS: CARIPRAZINE HCL 6 MG PO SCH (07:51)
[2023-11-12 08:07] LABS: HEMATOCRIT 41.9 % (35.4-49); HEMOGLOBIN 13.9 G/dL (11.7-16.9); MCH 29.2 pg (25.7-33.7); MCHC 33.1 g/dl (32.0-35.9); MEAN CELL VOLUME 88.5 fl (80-96); MEAN PLT VOLUME 8.4 fl (7.5-11.1); PLATELET COUNT 157.5 10^3/uL (134-434); RBC 4.74 10^6/uL (4.00-5.60); RDW 14.5 % (11.9-15.9); WHITE BLOOD COUNT 7.1 10^3/uL (4.0-10.8)
[2023-11-12] MEDS: FERROUS SO4 325 MG TABLET (FP) PO SCH (10:05)
[2023-11-13 06:49] VITALS: RESP 18
[2023-11-13 11:49] VITALS: BP 115/82; PULSE 98; TEMP 97.8
== END 2023-11-13 17:45 | DRG 178 ==
LOC: FER 16:41 → FM/S 18:48
PROVIDERS: ADMIT Internal Medicine; ATTEND Internal Medicine
DX: J69.0 Pneumonitis due to inhalation of food and vomit (principal); F72 Severe intellectual disabilities; F20.9 Schizophrenia, unspecified; J02.9 Acute pharyngitis, unspecified; R09.02 Hypoxemia; K59.00 Constipation, unspecified; K21.9 Gastro-esophageal reflux disease without esophagitis; G40.909 Epilepsy, unspecified, not intractable, without status epilepticus; E87.6 Hypokalemia
CPT/HCPCS: 0241U-QW; 36415; 71046-TC-FY; 74019-TC-FY; 80048; 80053; 85027; 87040; 87651; 99285-25; J0475

== ENCOUNTER 2024-06-07 21:55 | Inpatient (IN) | payer OTHER ==
[2024-06-07 22:02] VITALS: BMI 26.6
[2024-06-07] MEDS ORDERED: ONDANSETRON 4 MG/2 ML VIAL ONE (22:47)
[2024-06-07 22:48] LABS: VENOUS BASE EXCESS 1.6 mmol/L (-2-2); VENOUS O2 SATURATION 93.7 % (70-80); VENOUS PCO2 40.8 mmHg (38-52); VENOUS PH 7.424 (7.310-7.410)
[2024-06-07] MEDS ORDERED: ACETAMINOPHEN INJECTION 100 ML ONE (22:48)
[2024-06-07] MEDS: ACETAMINOPHEN 1000 MG/100 ML BAG IVPB ONE (22:49)
[2024-06-07] MEDS: SODIUM CHLORIDE 1,000 ML IV STA (22:50)
[2024-06-07] MEDS: ONDANSETRON 4 MG/2 ML VIAL IVPUSH ONE (22:50)
[2024-06-07 22:51] LABS: BASO % 0.5 % (0-2.0); EOS % 0.2 % (0-4.5); HEMATOCRIT 44.4 % (35.4-49); HEMOGLOBIN 14.7 GM/dL (11.7-16.9); MCH 28.3 pg (25.7-33.7); MCHC 33.2 g/dl (32.0-35.9); MEAN CELL VOLUME 85.5 fl (80-96); MEAN PLT VOLUME 7.9 fl (7.5-11.1); MONO % 14.7 % (3.8-10.2); NEUT % 72.6 % (42.8-82.8); PLATELET COUNT 160 10^3/uL (134-434); RBC 5.19 M/mm3 (4.00-5.60); RDW 13.8 % (11.9-15.9); WHITE BLOOD COUNT 7.2 K/mm3 (4.0-10.0)
[2024-06-07] MEDS ORDERED: VANCOMYCIN HCL 1,500 MG in DEXTROSE 5%-WATER - 500 ML IVPB ONE (22:55)
[2024-06-07] MEDS ORDERED: PIPERACILLIN/TAZOB 4.5 GM 4.5 GM/100 ML BAG IVPB ONE (22:57)
[2024-06-07 22:58] LABS: INR 1.31 (0.83-1.09)
[2024-06-07] MEDS: VANCOMYCIN 1,000 MG in DEXTROSE 5%-WATER - 250 ML IVPB ONE (22:58)
[2024-06-07 23:06] LABS: POTASSIUM 3.5 mmol/L (3.5-5.1)
[2024-06-07] MEDS: PIPERACILLIN/TAZOB 4.5 GM 4.5 GM in DEXTROSE 5%-WATER 100 ML IVPB ONE (23:06)
[2024-06-07 23:08] LABS: ALBUMIN 3.6 g/dl (3.4-5.0); CALCIUM 8.6 mg/dL (8.5-10.1)
[2024-06-07 23:09] LABS: BLOOD UREA NITROGEN 14.4 mg/dL (7-18)
[2024-06-07 23:13] LABS: TOT PROT 6.8 g/dl (6.4-8.2)
[2024-06-07 23:18] LABS: N-TERMINAL BNP 73.8 pg/ml (5-125)
[2024-06-08 00:11] LABS: BILIRUBIN,TOTAL 0.3 mg/dL (0.2-1)
[2024-06-08] MEDS: VANCOMYCIN PREMIX 1.5 GM 1,500 MG/300 ML BAG IVPB ONE (01:16)
[2024-06-08 02:34] LABS: URINE APPEARANCE CLEAR; URINE BILIRUBIN NEGATIVE (NEGATIVE); URINE COLOR YELLOW; URINE GLUCOSE (UA) NEGATIVE (NEGATIVE); URINE KETONE NEGATIVE (NEGATIVE); URINE LEUK ESTERASE NEGATIVE (NEGATIVE); URINE NITRITE NEGATIVE (NEGATIVE); URINE PROTEIN NEGATIVE (NEGATIVE); URINE UROBILINOGEN 0.2 mg/dL (0.2-1.0)
[2024-06-08] MEDS: ACETAMINOPHEN 500 MG TABLET (FP) PO PRN (09:47)
[2024-06-08] MEDS ORDERED: CARIPRAZINE HCL 6 MG PO SCH (10:00)
[2024-06-08] MEDS: LACTATED RINGERS SOLUTION 1,000 ML/1,000 ML INFUS.BAG IV SCH (10:36)
[2024-06-08] MEDS: PIPERACILLIN/TAZOB 4.5 GM 4.5 GM in DEXTROSE 5%-WATER 100 ML IVPB SCH ×2 (10:37→17:53)
[2024-06-08] MEDS: LACTULOSE 20 GM/30 ML UDC (FOR ORAL USE ONLY) PO SCH (10:41)
[2024-06-08] MEDS: ENOXAPARIN NA (PORCINE) 40 MG/0.4 ML DISP.SYRIN SQ SCH (10:41)
[2024-06-08] MEDS: SENNOSIDES 8.6MG TABLET (FP) PO SCH (10:41)
[2024-06-08] MEDS: PANTOPRAZOLE 40 MG TABLET PO SCH (10:41)
[2024-06-08] MEDS: LORATADINE 10 MG TABLET PO SCH (10:41)
[2024-06-08] MEDS: FAMOTIDINE 20 MG TABLET PO SCH (10:41)
[2024-06-08] MEDS: OXcarbazepine 300 MG TABLET (UD) PO SCH (11:31)
[2024-06-08] MEDS: DOCUSATE SODIUM 100 MG CAPSULE (FP) PO SCH (13:23)
[2024-06-08] MEDS: traZODone HCL 50 MG TABLET (FP) PO SCH (22:34)
[2024-06-08] MEDS: clonazePAM 0.5 MG TABLET PO SCH (22:34)
[2024-06-09] MEDS: clonazePAM 2 MG TABLET PO SCH (06:03)
[2024-06-09] MEDS: BACLOFEN 10 MG TABLET (FP) PO SCH (06:04)
[2024-06-09] MEDS ORDERED: PATIENT'S OWN MEDICATION (NON-FORMULARY) (Clonazepam [Clonazepam] 1 MG Tablet) PO SCH (07:00)
[2024-06-09] MEDS: guaiFENesin/D-METHORPHAN HB 10 ML UNIT-DOSE CUPS PO SCH (09:25)
[2024-06-09 09:43] LABS: BASO % 0.6 % (0-2.0); EOS % 0.9 % (0-4.5); HEMATOCRIT 44.8 % (35.4-49); HEMOGLOBIN 14.7 GM/dL (11.7-16.9); LYMPH % 16.4 % (8-40); MCH 28.3 pg (25.7-33.7); MCHC 32.9 g/dl (32.0-35.9); MONO % 11.1 % (3.8-10.2); PLATELET COUNT 155 10^3/uL (134-434); RBC 5.21 M/mm3 (4.00-5.60); RDW 13.5 % (11.9-15.9); WHITE BLOOD COUNT 8.1 K/mm3 (4.0-10.0)
[2024-06-09 10:04] LABS: POTASSIUM 3.8 mmol/L (3.5-5.1)
[2024-06-09 10:12] LABS: ALBUMIN 3.4 g/dl (3.4-5.0); BLOOD UREA NITROGEN 9.9 mg/dL (7-18); CALCIUM 8.6 mg/dL (8.5-10.1); MAGNESIUM 2.3 mg/dL (1.8-2.4)
[2024-06-09 10:16] LABS: BILIRUBIN,TOTAL 1.1 mg/dL (0.2-1)
[2024-06-09 10:20] LABS: TOT PROT 6.5 g/dl (6.4-8.2)
[2024-06-09] MEDS: BUDESONIDE 0.5 MG/2 ML INH SUSP VIAL NEB SCH (12:00)
[2024-06-09] MEDS: LEVALBUTEROL HCL 0.63 MG/3 ML VIAL.NEB. IH SCH (12:00)
[2024-06-09] MEDS: FLUTICASONE PROP 0.05% 16 GM NASAL SPRAY NS SCH (12:36)
[2024-06-09] MEDS: METOCLOPRAMIDE HCL INJECTION 10 MG/2 ML VIAL IVPUSH ONE (12:36)
[2024-06-09] MEDS ORDERED: BUDESONIDE 0.5 MG/2 ML INH SUSP VIAL NEB SCH (20:00)
[2024-06-09] MEDS ORDERED: valACYclovir HCL 500 MG TABLET (FP) PO SCH (22:00)
[2024-06-09] MEDS: valACYclovir HCL 500 MG TABLET (FP) PO SCH (22:43)
[2024-06-10 08:53] LABS: HEMATOCRIT 43.1 % (35.4-49); HEMOGLOBIN 13.9 GM/dL (11.7-16.9); MCHC 32.2 g/dl (32.0-35.9); RBC 4.96 M/mm3 (4.00-5.60)
[2024-06-10 08:54] LABS: BASO % 0.3 % (0-2.0); EOS % 0.5 % (0-4.5); LYMPH % 9.7 % (8-40); MEAN PLT VOLUME 7.5 fl (7.5-11.1); MONO % 8.7 % (3.8-10.2); NEUT % 80.8 % (42.8-82.8); PLATELET COUNT 149 10^3/uL (134-434)
[2024-06-10 09:25] LABS: POTASSIUM 3.6 mmol/L (3.5-5.1)
[2024-06-10 09:29] LABS: CALCIUM 8.8 mg/dL (8.5-10.1)
[2024-06-10 09:30] LABS: BLOOD UREA NITROGEN 9.6 mg/dL (7-18)
[2024-06-10] MEDS: PROCHLORPERAZINE INJECTION 10 MG/2 ML VIAL IVPB PRN (13:55)
[2024-06-10] MEDS: DOCUSATE NA 100 MG/10 ML UNIT-DOSE CUPS PO SCH (15:22)
[2024-06-11] MEDS: chlorproMAZINE HCL 25 MG TABLET PO ONE ×2 (06:12→08:40)
[2024-06-11] MEDS: TRIMETHOBENZAMIDE HCL 200MG/2ML INJ IM ONE (08:50)
[2024-06-11] MEDS: METOCLOPRAMIDE HCL INJECTION 10 MG/2 ML VIAL IVPUSH SCH ×2 (14:16→14:21)
[2024-06-11] MEDS: BACLOFEN 10 MG TABLET (FP) PO SCH (14:25)
[2024-06-11] MEDS: MAG HYDROX/AL HYDROX/SIMETH 30 ML UNIT-DOSE CUP PO SCH (14:26)
[2024-06-11] MEDS: chlorproMAZINE HCL 25 MG TABLET PO SCH (14:31)
[2024-06-11] MEDS: METOCLOPRAMIDE HCL INJECTION 10 MG/2 ML VIAL IVPUSH ONE (14:59)
[2024-06-11] MEDS: METOCLOPRAMIDE HCL 10 MG TABLET (FP) PO ONE (15:20)
[2024-06-12 11:33] LABS: BASO % 0.5 % (0-2.0); EOS % 1.7 % (0-4.5); HEMATOCRIT 41.1 % (35.4-49); HEMOGLOBIN 13.6 GM/dL (11.7-16.9); LYMPH % 30.6 % (8-40); MCH 28.3 pg (25.7-33.7); MEAN CELL VOLUME 85.7 fl (80-96); MEAN PLT VOLUME 7.6 fl (7.5-11.1); MONO % 10.8 % (3.8-10.2); NEUT % 56.4 % (42.8-82.8); PLATELET COUNT 158 10^3/uL (134-434); RBC 4.79 M/mm3 (4.00-5.60); RDW 12.8 % (11.9-15.9); WHITE BLOOD COUNT 4.7 K/mm3 (4.0-10.0)
[2024-06-12 12:08] LABS: POTASSIUM 3.9 mmol/L (3.5-5.1)
[2024-06-12 12:16] LABS: ALBUMIN 3.1 g/dl (3.4-5.0); BLOOD UREA NITROGEN 8.9 mg/dL (7-18); CALCIUM 8.7 mg/dL (8.5-10.1); MAGNESIUM 2.5 mg/dL (1.8-2.4)
[2024-06-12 12:19] LABS: CREATININE 0.9 mg/dL (0.55-1.3)
[2024-06-12 12:20] LABS: PHOSPHOROUS 2.3 mg/dL (2.5-4.9)
[2024-06-12 12:21] LABS: BILIRUBIN,TOTAL 0.8 mg/dL (0.2-1); TOT PROT 6.2 g/dl (6.4-8.2)
[2024-06-12] MEDS ORDERED: BENZOCAINE/MENTHOL 1 EACH LOZENGE MM PRN (13:35)
[2024-06-12] MEDS: NAPH,MB-DB/K PH,MBDB POWDER PACKET PO ONE (15:55)
[2024-06-12] MEDS: BENZOCAINE/MENTH/CETYLPYRD CL 1 EACH LOZENGE MM PRN (20:06)
[2024-06-12] MEDS: chlorproMAZINE HCL 25 MG TABLET PO PRN (21:41)
[2024-06-13 06:58] VITALS: TEMP 97.7
[2024-06-13 12:13] VITALS: BP 124/84; PULSE 92; RESP 19
[2024-06-13] MEDS: METOCLOPRAMIDE HCL 10 MG TABLET (FP) PO ONE (12:32)
== END 2024-06-13 14:20 | disposition home or self-care (01) | DRG 177 ==
LOC: JER 21:55 → JERBED 06-08 02:47 → J6W 06-08 05:37
PROVIDERS: ADMIT Internal Medicine
DX: J69.0 Pneumonitis due to inhalation of food and vomit (principal); J96.01 Acute respiratory failure with hypoxia; F20.9 Schizophrenia, unspecified; E04.1 Nontoxic single thyroid nodule; F79 Unspecified intellectual disabilities; B00.1 Herpesviral vesicular dermatitis; K59.00 Constipation, unspecified; K21.9 Gastro-esophageal reflux disease without esophagitis; R00.0 Tachycardia, unspecified; R50.9 Fever, unspecified; R19.7 Diarrhea, unspecified
CPT/HCPCS: 0241U-QW; 36415; 71045-TC-FY; 71250-TC; 80048; 80053; 81003; 82803; 82962; 83605; 83735; 83880; 84100; 84484; 85025; 85610; 85730; 86850; 86900; 86901; 87040; 87086; 87899; 93005; 93010; 94640; 97116-GP; 97161-GP; 99285-25; J0131; J0475